=== PATIENT | female | born 1990 | race Caucasian/White ===

== ENCOUNTER 2016-12-08 14:17 | Emergency (ER) | payer OTHER ==
[~2016-12-08] VITALS: Ht 160 cm; Wt 52.2 kg
[~2016-12-08 14:17] MED LIST: B 6; B12; DEPO-PROVE150 MG/1 M IM; DOXYCYCLINE HY100 MG PO; EXTRA-VIRT PLU1 EACH PO; FOLIC ACID1 MG PO; GUAIFENESIN-CO118 ML PO; MACROBID 100 M100 MG PO; METRONIDAZOLE500 MG PO; MOTRIN800 MG PO; NAPROSYN500 MG PO; NAPROXEN500 MG PO; NORCO 5-325 TA1 EACH PO; ONDANSETRON ODT4 MG PO; PROAIR HFA8.5 GM INH; VITAMIN B-121000 MCG PO; VITAMIN B-6250 MG PO; ZITHROMAX250 MG PO
== END 2016-12-08 18:09 | disposition home or self-care (01) ==
LOC: ED 14:17
DX: O20.0 Threatened abortion (principal); O99.331 Smoking (tobacco) complicating pregnancy, first trimester; F17.200 Nicotine dependence, unspecified, uncomplicated; Z90.49 Acquired absence of other specified parts of digestive tract; Z79.899 Other long term (current) drug therapy; Z3A.01 Less than 8 weeks gestation of pregnancy
CPT/HCPCS: 81001; 84702; 84703; 86900; 86901; 96374; 99283; J2405; J7030

== ENCOUNTER 2017-01-20 | Emergency (ER) | payer OTHER ==
[~2017-01-20] VITALS: Ht 160 cm; Wt 51.3 kg
== END 2017-01-20 00:45 | disposition home or self-care (01) ==
LOC: ED
PROC: 2W3CX1Z Immobilization of Right Lower Arm using Splint (ICD-10-PCS; principal; 2017-01-20)
DX: O9A.211 Injury, poisoning and certain other consequences of external causes complicating pregnancy, first trimester (principal); S60.211A Contusion of right wrist, initial encounter; O99.331 Smoking (tobacco) complicating pregnancy, first trimester; F17.200 Nicotine dependence, unspecified, uncomplicated; Z90.49 Acquired absence of other specified parts of digestive tract; Z79.899 Other long term (current) drug therapy; Z3A.13 13 weeks gestation of pregnancy
CPT/HCPCS: 29125; 99282

== ENCOUNTER 2017-07-25 13:48 | Inpatient (IN) | payer OTHER ==
[~2017-07-25] VITALS: Ht 160 cm; Wt 65.0 kg
--- NOTE | 2017-07-25 16:04 | NUR ---
07/25/17 1604 Catalina Wiley 1530 PT ARRIVED IN PACU WIDE AWAKE WITH NO C/O'S. FUNDAL MASSAGE DONE WITH FUNDUS FIRM AT -2. LIGHT DRAINAGE NOTED. 1535 MOM HOLDING BABY. GRANDMA IN ROOM. 1545 C/O NAUSEA. EMESIS OF 100ML WITH STRONG ODOR AND FOOD PRESENT. COOL CLOTH TO FOREHEAD. NEW ORDERS RECEIVED. 1555 PHENERGAN 12.5MG GIVEN SLOW IVP FOR NAUSEA. 1600 MOM RESTING.
[2017-07-25] MEDS ORDERED: ACYCLOVIR400 MG PO (17:05)
--- NOTE | 2017-07-26 12:16 | PR ---
[facility] [address] [facility] [place] [address] Signed PP Progress Notes Datetime Report Generated by CPN: 07/26/2017 12:16 SUBJECTIVE: [id number] Pain: Within normal limits Nausea/Vomiting: Denies Vital Signs: [id number] Vital Signs: Reviewed; Within Normal Limits EXAM: [id number] Abdomen/Uterus: Normal Lochia: Normal Extremities: Normal Incision: Normal IMPRESSION/PLAN/PROCEDURES: [id number] Impression: Normal progression Plan: Continue present management Procedures: None Progress Notes: Doing well, except still some abdominal soreness Signing Physician: Martín Kimbrough MD Copies: ~ *Electronically Signed* 07/26/17 1216 MARTÍN KIMBROUGH MD PATIENT NAME: SINA GUEVARA PROGRESS NOTE DATE OF : [birth year] PHYSICIAN: MARTÍN KIMBROUGH MD RPT #: [id number] REPORT IS CONFIDENTIAL AND NOT TO BE RELEASED WITHOUT AUTHORIZATION
--- NOTE | 2017-07-28 08:48 | PR ---
[facility] [address] [facility] [place] [address] Signed PP Progress Notes Datetime Report Generated by CPN: 07/28/2017 08:48 SUBJECTIVE: [id number] Pain: Within normal limits Nausea/Vomiting: Denies Vital Signs: [id number] Vital Signs: Reviewed; Within Normal Limits Notable Details: PP Hgb/Hct = 10.2/30.6 EXAM: [id number] Abdomen/Uterus: Normal Lochia: Normal Extremities: Normal Incision: Normal IMPRESSION/PLAN/PROCEDURES: [id number] Impression: Normal progression Plan: Discharge Procedures: None Progress Notes: Doing well, without complaint, ready to go home. Signing Physician: Martín Kimbrough MD Copies: ~ *Electronically Signed* 07/28/17 0848 MARTÍN KIMBROUGH MD PATIENT NAME: SINA GUEVARA PROGRESS NOTE DATE OF : [birth year] PHYSICIAN: MARTÍN KIMBROUGH MD RPT #: [id number] REPORT IS CONFIDENTIAL AND NOT TO BE RELEASED WITHOUT AUTHORIZATION
--- NOTE | 2017-07-28 08:53 | OR ---
[facility] [address] [place] [address] Signed DATE OF OPERATION: 07/25/2017 SURGEON: Ran Zhang MD Patient of Dr. Zhang. 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 PROCEDURE: Primary low transverse segment section, delivery of live female infant. BEE WORKER: Dr. Bello. ANESTHESIA: Spinal. ESTIMATED BLOOD LOSS: 500 mL. COMPLICATIONS: None. DRAINS: Carrera to bladder. FINDINGS: Live female infant, Apgars 6 and 9, weight 7 pounds 5 ounces. There was large amount of thin meconium present. Normal tubes and ovaries bilateral. DESCRIPTION OF PROCEDURE: The patient was brought to the operating room, placed in supine position. After adequate spinal anesthesia was obtained, she was placed in dorsal lithotomy position. Prepped and draped in usual sterile fashion. A Pfannenstiel skin incision was made with a scalpel and extended through subcutaneous tissue with the Bovie. Any bleeding spots were cauterized with the Bovie. The fascia was nicked with scalpel and extended in Electronically Signed By: RAN ZHANG MD 07/28/17 0853 PATIENT NAME: SINA GUEVARA OPERATIVE REPORT DATE OF : [birth year] REPORT #: [id number] PHYSICIAN: RAN ZHANG MD PCP: AILEEN [facility] [employer] PROFESS[employer] REPORT IS CONFIDENTIAL AND NOT TO BE RELEASED WITHOUT AUTHORIZATION [facility] [address] [place], [place] [address] Signed transverse fashion using curved scissors. The underlying abdominal musculature was bluntly and sharply from the fascia above and below the incision. The abdominal musculature was bluntly and sharply along the midline. The peritoneum was grasped with hemostats, elevated, nicked with Metzenbaum scissors, and extended in vertical fashion using Metzenbaum scissors. The Romie self-retaining retractor was inserted into the incision and tightened in place. The lower uterine segment was identified. The lower uterine segment carefully nicked with scalpel. Thin meconium came from the incision. The incision was extended in transverse fashion using finger dissection. The infant was noted to be in vertex PILAR presentation. The 's head easily delivered from the incision. The rest of the was easily delivered from the incision. The mouth and nose were suctioned with bulb syringe, while the cord was doubly clamped and cut. The was passed off table in good condition to awaiting nurse. The placenta was manually removed and uterine cavity explored with a lap pad to remove any retained membranes. An angle stitch of 0 Monocryl was placed at one end of incision and a running locking stitch of 0 Monocryl starting at the other end used to close the incision. A second running stitch of 0 Monocryl was used to imbricate the first layer. Good hemostasis was noted. The entire pelvis was irrigated, suctioned, examined and few superficial bleeding spots were cauterized with the Bovie. When good hemostasis was obtained, the Romie retractor was removed. A sheet of ACell was placed over lower uterine segment to help with healing. The anterior wall peritoneum was closed using running stitch of 2-0 Vicryl suture. The abdominal musculature was closed using interrupted stitches of 0 Vicryl suture. The abdominal wall incision was irrigated, suctioned, examined and any bleeding spots cauterized with the Bovie. Powdered ACell was sprinkled on the abdominal musculature to help with healing and then the fascia was closed using 2 running stitches of 0 Vicryl suture meeting in the midline. Subcutaneous tissue was irrigated, suctioned, examined, and any bleeding spots cauterized with the Bovie. Subcutaneous tissue was closed using interrupted stitches of 3-0 Vicryl suture and the skin reapproximated using skin clips. The patient tolerated the procedure well, went to recovery room in good condition. The sponge, needle, and instrument counts were correct at the end of the procedure. Ran Zhang MD MJB/MODL /[id number] Electronically Signed By: RAN ZHANG MD 07/28/17 0853 PATIENT NAME: SINA GUEVARA OPERATIVE REPORT DATE OF : [birth year] REPORT #: [id number] PHYSICIAN: RAN ZHANG MD PCP: AILEEN [place] REPORT IS CONFIDENTIAL AND NOT TO BE RELEASED WITHOUT AUTHORIZATION [address] [address] Signed Copies: ~ Electronically Signed By: RAN ZHANG MD 07/28/17 0853 PATIENT NAME: ISMAELSINA BRIA OPERATIVE REPORT DATE OF : [birth year] REPORT #: [id number] PHYSICIAN: RAN ZHANG MD PCP: AILEEN [place] REPORT IS CONFIDENTIAL AND NOT TO BE RELEASED WITHOUT AUTHORIZATION
== END 2017-07-28 10:30 | disposition home or self-care (01) | DRG 765 ==
LOC: FBCO 13:48 → FBC 13:57
PROVIDERS: ADMIT General Practice
PROC: 10D00Z1 Extraction of Products of Conception, Low, Open Approach (ICD-10-PCS; principal; 2017-07-25 14:30)
DX: O98.32 Other infections with a predominantly sexual mode of transmission complicating childbirth (principal); E72.12 Methylenetetrahydrofolate reductase deficiency; A60.00 Herpesviral infection of urogenital system, unspecified; O77.0 Labor and delivery complicated by meconium in amniotic fluid; O99.334 Smoking (tobacco) complicating childbirth; F17.210 Nicotine dependence, cigarettes, uncomplicated; O99.824 Streptococcus B carrier state complicating childbirth; O99.284 Endocrine, nutritional and metabolic diseases complicating childbirth; Z88.5 Allergy status to narcotic agent; Z79.899 Other long term (current) drug therapy; Z86.19 Personal history of other infectious and parasitic diseases; Z3A.39 39 weeks gestation of pregnancy; Z37.0 Single live birth
CPT/HCPCS: 01961; 36415; 83030; 85027; 86850; 86870; 86900; 86901; C1763; J0690; J2175; J2274; J2300; J2370; J2405; J2550; J2590; J2790; J3105; J7120

== ENCOUNTER 2018-09-06 22:19 | Emergency (ER) | payer OTHER ==
[~2018-09-06] VITALS: Ht 160 cm; Wt 46.7 kg
[~2018-09-06 22:19] MED LIST changes: +ACYCLOVIR400 MG PO
[2018-09-06] MEDS ORDERED: VALACYCLOVIR500 MG PO (22:31)
== END 2018-09-06 23:57 | disposition home or self-care (01) ==
LOC: ED 22:19
DX: S53.402A Unspecified sprain of left elbow, initial encounter (principal); V89.2XXA Person injured in unspecified motor-vehicle accident, traffic, initial encounter; F17.200 Nicotine dependence, unspecified, uncomplicated; Z79.899 Other long term (current) drug therapy
CPT/HCPCS: 73080; 73090; 99283

== ENCOUNTER 2020-01-11 15:17 | Emergency (ER) | payer OTHER ==
[~2020-01-11] VITALS: Ht 160 cm; Wt 57.6 kg
[~2020-01-11 15:17] MED LIST changes: +VALACYCLOVIR500 MG PO
[2020-01-11] MEDS ORDERED: KEFLEX500 MG PO (17:46)
[2020-01-11] MEDS ORDERED: NUVESSA5 GM VAGINAL (17:46)
== END 2020-01-11 18:05 | disposition home or self-care (01) ==
LOC: ED 15:17
DX: O23.41 Unspecified infection of urinary tract in pregnancy, first trimester (principal); O23.591 Infection of other part of genital tract in pregnancy, first trimester; N76.0 Acute vaginitis; B96.89 Other specified bacterial agents as the cause of diseases classified elsewhere; O99.331 Smoking (tobacco) complicating pregnancy, first trimester; F17.200 Nicotine dependence, unspecified, uncomplicated; Z3A.09 9 weeks gestation of pregnancy; Z79.899 Other long term (current) drug therapy
CPT/HCPCS: 76801; 81001; 84702; 85025; 87210; 87491; 87591; 99284-25